=== PATIENT | male | born 1980 | race African-American/Black ===

== ENCOUNTER 2017-06-24 18:25 | Emergency (ER) | payer SELFPAY ==
[~2017-06-24] VITALS: Ht 177.8 cm; Wt 74.9 kg
[~2017-06-24 18:25] MED LIST: ANAPROX DS550 M1 PO; ANUSOL-HC21 GM PR; BENADRYL50 MG PO; CLONIDINE HCL0.1 MG PO; EPIPEN ADU0.3 MG/0.3 IM; FLOMAX0.4 MG PO; LISINOPRIL-HCT1 EACH PO; NAPROSYN500 MG PO; PREDNISONE10 MG PO; ROBITUSSIN AC,T10 ML PO
[2017-06-24 19:46] LABS: CHLORIDE 106 mEq/L (99-109); POTASSIUM 3.5 mEq/L (3.7-5.4); SODIUM 141 mEq/L (136-147)
[2017-06-24 19:48] LABS: GLUCOSE 88 mg/dL (70-99)
[2017-06-24 19:49] LABS: ANION GAP 11 MEQ/L (2-14)
[2017-06-24 19:52] LABS: GFR ESTIMATE (CALCULATED) > 59 mL/min/; UREA NITROGEN (BUN) 8 mg/dL (9-23)
[2017-06-24] MEDS ORDERED: ZITHROMAX Z-PA250 MG PO (20:37)
[2017-06-24] MEDS ORDERED: AMLODIPINE BESYL5 MG PO (20:37)
[2017-06-24 20:48] VITALS: BP 203/115
[2017-06-24] MEDS ORDERED: VENTOLIN HFA18 GM IH (20:59)
== END 2017-06-24 21:02 | disposition home or self-care (01) ==
LOC: EME 18:25
PROVIDERS: Physician Assistant
DX: J20.9 Acute bronchitis, unspecified (principal); I10 Essential (primary) hypertension; R03.0 Elevated blood-pressure reading, without diagnosis of hypertension
CPT/HCPCS: 71020; 80048; 94640; 99281; 99284